=== PATIENT | male | born 1985 | race Caucasian/White ===

== ENCOUNTER 2019-06-16 15:09 | Emergency (ER) | payer OTHER ==
[~2019-06-16] VITALS: Ht 175.3 cm; Wt 90.0 kg
[2019-06-16 15:20] VITALS: BP 153/90
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
== END 2019-06-16 15:40 | disposition home or self-care (01) ==
LOC: ER 15:09
DX: Z77.21 Contact with and (suspected) exposure to potentially hazardous body fluids (principal); F32.9 Major depressive disorder, single episode, unspecified; K21.9 Gastro-esophageal reflux disease without esophagitis; Z88.1 Allergy status to other antibiotic agents
CPT/HCPCS: 86703; 86705; 86709; 86803; 87340; 99283